=== PATIENT | female | born 1970 | race Two or more races ===

== ENCOUNTER 2024-01-03 19:17 | Emergency (ER) | payer OTHER ==
[~2024-01-03] VITALS: Ht 160 cm; Wt 117.9 kg
[~2024-01-03 19:17] MED LIST: ATOR40TA PO; EMPA25TA PO; IBUP-2213 PO; METF-346 PO; MIRABULK PO
[2024-01-03 19:29] VITALS: BP 146/93; PULSE 92; RESP 22; TEMP 97.8; O2SAT 99
[2024-01-03 20:34] LABS: BASOPHILS # (AUTO) 0.1 K/uL (0.00-0.22); BASOPHILS % (AUTO) 0.5 % (0.0-2.0); EOSINOPHILS # (AUTO) 0.2 K/uL (0-0.4); EOSINOPHILS % (AUTO) 2.3 % (0.0-4.0); HEMATOCRIT 38.1 % (36-48); HEMOGLOBIN 12.6 g/dL (12.0-16.0); LYMPHOCYTES # (AUTO) 2.8 K/uL (2.5-16.5); LYMPHOCYTES % (AUTO) 27.1 % (20.5-51.1); MEAN CORPUSCULAR HEMOGLOBIN 28 pg (27-31); MEAN CORPUSCULAR HGB CONC 33 g/dL (33-37); MEAN CORPUSCULAR VOLUME 84.4 fL (80-94); MONOCYTES # (AUTO) 0.5 K/uL (0.8-1.0); NEUTROPHILS # (AUTO) 6.6 K/uL (1.8-7.7); NEUTROPHILS % (AUTO) 65.1 % (42.2-75.2); PLATELET COUNT (AUTO) 309 K/uL (140-450); RED BLOOD CELL COUNT(AUTO) 4.51 MIL/uL (4.20-5.40); RED CELL DISTRIBUTION WIDTH 13.7 % (11.6-13.7); WHITE BLOOD COUNT (AUTO) 10.2 K/uL (4.8-10.8)
[2024-01-03 20:51] LABS: ANION GAP 13.2 (8-16); CALCIUM 9.2 mg/dL (8.5-10.1); CARBON DIOXIDE 29.6 mmol/L (21-32); CREATININE 0.8 mg/dL (0.6-1.3); POTASSIUM 3.8 mmol/L (3.5-5.1)
[2024-01-03 20:53] LABS: INR 0.94 (0.8-1.2); PARTIAL THROMBOPLASTIN TIME 28.8 secs (22-35.6); PROTHROMBIN TIME 9.9 secs (10.8-13.4)
[2024-01-03 22:06] VITALS: O2SAT 99
[2024-01-03] MEDS ORDERED: LID5T TP (22:16)
[2024-01-03] MEDS ORDERED: IBUP-2213 PO (22:16)
[2024-01-03] MEDS: KETOROLAC 30 MG/ML VIAL IM ONE (22:29)
[2024-01-03] MEDS: LIDOCAINE 5% 1 EA PATCH TP ONE (22:30)
[2024-01-03 22:45] VITALS: BP 167/98; PULSE 83; RESP 16; TEMP 97.6
[2024-01-03 22:51] VITALS: O2SAT 98
== END 2024-01-03 22:59 | disposition home or self-care (01) ==
LOC: MED 19:17
DX: R07.89 Other chest pain (principal); M25.512 Pain in left shoulder; I10 Essential (primary) hypertension; E11.9 Type 2 diabetes mellitus without complications; Z79.4 Long term (current) use of insulin; Z79.899 Other long term (current) drug therapy
CPT/HCPCS: 36415; 71045; 80048; 81025; 83880; 84484; 85025; 85610; 85730; 93005; 96372; 99285; J1885